=== PATIENT | female | born 1975 | race Caucasian/White ===

== ENCOUNTER → 2016-10-21 | Outpatient (CLI) | payer BC ==
[~2016-10-21] MED LIST: Gadobutrol 10 mMOL/10 ML SDV IVPUSH STA
--- NOTE | 2016-10-21 16:27 | CR ---
EXAMINATION: Lumbar spine HISTORY: Lytic uropathy COMPARISON: MRI dated 10/21/2016 TECHNIQUE: AP, lateral, flexion and extension images of the lumbar spine. FINDINGS: The lumbar spinal alignment is normal. The vertebral body heights are grossly maintained. There is no fracture or acute osseous abnormality. The SI joints are symmetric. Alignment appears no rmal flexion and extension. IMPRESSION: Unremarkable lumbar spine.
--- NOTE | 2016-10-22 12:46 | MR ---
EXAMINATION: MRI of the lumbar spine without contrast HISTORY: Radiculopathy COMPARISON: 07/05/2014 TECHNIQUE: Multiplanar and multisequence images obtained through the lumbar spine before and followi ng the administration of 7 mL of Gadavist. FINDINGS: The lumbar spinal alignment is normal. The vertebral body heights appear well maintained. Mild endplate edema is noted at L5. No suspicious bone marrow signal changes. No abnormal enhancemen t. The distal spinal cord appears normal and the conus terminates at L1-L2. The visualized retroperi toneal structures appear normal. T12-L1: Unremarkable. L1-L2: Unremarkable. L2-L3: Minimal facet hypertrophy, otherwise unremarkable. L3-L4: Tiny diffuse disc bulge without significant spinal canal or neural foraminal stenosis. L3-L4: Small diffuse disc bulge with mild facet and ligamentum flavum hypertrophy resulting in mild spinal canal stenosis. Mild bilateral neural foraminal stenosis. L5-S1: Moderate diffuse disc bulge with an annular tear without significant spinal canal stenosis. M ild to moderate foraminal stenosis. IMPRESSION: 1. Moderate diffuse disc bulge with an annular tear at L5-S1 otherwise mild multilevel degenerative disc disease with individual details above.
== END ==
LOC: MW.MRI 12:31
PROVIDERS: ATTEND Psychiatry & Neurology Neuromuscular Medicine
DX: M54.16 Radiculopathy, lumbar region (principal)
CPT/HCPCS: 72110; 72158; A9585

== ENCOUNTER → 2016-11-19 | Outpatient (CLI) | payer BC | LOC: MW.CHIM 11-15 12:00 | PROVIDERS: ATTEND Internal Medicine | DX: R00.2 Palpitations (principal) | CPT/HCPCS: 93005 ==

== ENCOUNTER → 2016-11-20 | Outpatient (CLI) | payer BC | END | disposition home or self-care (01) | LOC: MW.RT 14:45 | PROVIDERS: ATTEND Internal Medicine | DX: R00.2 Palpitations (principal) ==

== ENCOUNTER → 2016-11-26 | Outpatient (CLI) | payer BC | END | disposition home or self-care (01) | LOC: MW.DI 09:28 | PROVIDERS: ATTEND Physician Assistant | DX: R10.9 Unspecified abdominal pain (principal); R10.13 Epigastric pain; Z53.9 Procedure and treatment not carried out, unspecified reason ==

== ENCOUNTER → 2016-12-17 | Outpatient (CLI) | payer BC | END | disposition home or self-care (01) | LOC: MW.RT 13:54 | PROVIDERS: ATTEND Internal Medicine | DX: R10.13 Epigastric pain (principal); K42.9 Umbilical hernia without obstruction or gangrene; R00.2 Palpitations; N13.30 Unspecified hydronephrosis | CPT/HCPCS: 93270 ==

== ENCOUNTER → 2016-12-30 | Outpatient (CLI) | payer BC | END | disposition home or self-care (01) | LOC: MW.CHGS 13:42 | PROVIDERS: ATTEND Surgery | DX: R10.9 Unspecified abdominal pain (principal) | CPT/HCPCS: 36415; 81003; 85027 ==

== ENCOUNTER 2017-01-01 06:34 | Day surgery (SDC) | payer BC ==
[~2017-01-01 06:34] MED LIST changes: +Bupivacaine 0.5% 10 ML SDV ONE; -Gadobutrol 10 mMOL/10 ML SDV IVPUSH STA; +Lactated Ringers 1,000 ML IV SCH; +Sodium Chloride 0.9% 10 ML Syringe FLUSH PRN; +Sodium Chloride 0.9% 2.5 ML Syringe FLUSH PRN; +ceFAZolin 1 GM Vial ONE; +ceFAZolin 2 GM in Premix Bag 1 BAG IV ONE
[2017-01-01] MEDS ORDERED: Ondansetron 4 MG/2 ML SDV ONE (07:13)
[2017-01-01] MEDS ORDERED: Propofol 200 MG/20 ML SDV ONE (07:13)
[2017-01-01] MEDS ORDERED: Lidocaine 2% 5 ML SDV ONE (07:13)
[2017-01-01] MEDS ORDERED: Midazolam 1 MG/ML 2 ML SDV ONE (07:13)
[2017-01-01] MEDS ORDERED: fentaNYL 250 MCG/5 ML SDV ONE (07:14)
--- NOTE | 2017-01-01 07:15 | PCM.PREANE ---
Preanesthetic Assessment - Anesthesia/Transfusion/Family Hx Anesthesia History: Prior Anesthesia Without Reaction Family History of Anesthesia Reaction: No Transfusion History: No Prior Transfusion(s) Intubation History: Unknown - Review of Systems General: No Symptoms Pulmonary: No Symptoms Cardiovascular: No Symptoms Gastrointestinal: No symptoms Neurological: No Symptoms Other: Reports: None - Physical Assessment Height: 1.75 m Weight: 72.575 kg ASA Class: 2 Mental Status: Alert & Oriented x3 Airway Class: Mallampati = 2 Dentition: Reports: Normal Dentition Thyro-Mental Finger Breadths: 3 Mouth Opening Finger Breadths: 2 ROM/Head Extension: Full Lungs: Clear to auscultation, Normal respiratory effort Cardiovascular: Regular Rate, Regular Rhythm - Allergies Allergies/Adverse Reactions: Allergies Allergy/AdvReac Type Severity Reaction Status Date / Time No Known Allergies Allergy Verified 09/10/14 22:57 - Blood Blood Available: No - Anesthesia Plan Pre-Op Medication Ordered: None - Acknowledgements Anesthesia Type Planned: General Anesthesia Pt an Appropriate Candidate for the Planned Anesthesia: Yes Alternatives and Risks of Anesthesia Discussed w Pt/Guardian: Yes Pt/Guardian Understands and Agrees with Anesthesia Plan: Yes PreAnesthesia Questionnaire HEENT History: Reports: Other (see below) Other HEENT History: wears glasses/contacts Cardiovascular History: Reports: Other (see below) Other Cardiovascular History: palpatation, currently on holter monitor Respiratory History: Reports: None Gastrointestinal History: Reports: GERD Other Gastrointestinal History: "occasional reflux" Genitourinary History: Reports: None 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: Reports: Musculoskeletal History: Reports: Back pain, chronic, Other (see below) Other Musculoskeletal History: Herniated disc surgery Neurological History: Reports: Migraines Other Neuro History: Chiari malformation, myoclonus, muscle fasciculation, syrinx of spinal cord Psychiatric History: Reports: None Endocrine/Metabolic History: Reports: None Hematologic History: Reports: None Oncologic (Cancer) History: Reports: None Dermatologic History: Reports: None - Infectious Disease History Infectious Disease History: Reports: Chicken pox - Past Surgical History Head Surgeries/Procedures: Reports: None HEENT Surgical History: Reports: Tonsillectomy Cardiovascular Surgical History: Reports: None GI Surgical History: Reports: None Female Surgical History: Reports: Breast biopsy, section Endocrine Surgical History: Reports: None Neurological Surgical History: Reports: Lumbar spine Other Neurological Surgeries/Procedures: hx back surgery for herniated disc Musculoskeletal Surgical History: Reports: None Oncologic Surgical History: Reports: Biopsy of breast - SUBSTANCE USE Smoking Status *Q: Never Smoker Second Hand Smoke Exposure: No Days Per Week of Alcohol Use: 0 Recreational Drug Use History: No - HOME MEDS Home Medications: Home Meds ClonazePAM [KlonoPIN] 1 tab PO BEDTIME PRN 03/19/15 [History] Ca Carbonate/Vitamin D3/Vit K [Calcium + D Soft Chewable Tab] 1 tab.chew PO ASDIRECTED 12/30/16 [History] Evening [place] Oil [Evening [place]] 1 tab PO ASDIRECTED 12/30/16 [History] Ibuprofen 2 tab PO ASDIRECTED PRN 12/30/16 [History] Vitamin B Complex 1 tab PO DAILY 12/30/16 [History] - CURRENT (IN HOUSE) MEDS Current Meds: Current Medications Lactated Ringer's (Ringers, Lactated) 1,000 mls @ 125 mls/hr IV ASDIRECTED JL Last Admin: 01/01/17 07:01 Dose: 125 mls/hr Sodium Chloride (Saline Flush) 10 ml FLUSH ASDIRECTED PRN PRN Reason: Keep Vein Open Sodium Chloride (Saline Flush) 2.5 ml FLUSH ASDIRECTED PRN PRN Reason: Keep Vein Open Discontinued Medications Bupivacaine HCl (Sensorcaine-Mpf 0.5%) Confirm Administered Dose 30 ml .ROUTE .STK-MED ONE Stop: 12/31/16 15:03 Cefazolin Sodium (Ancef) Confirm Administered Dose 1 gm .ROUTE .STK-MED ONE Stop: 12/31/16 15:03 Cefazolin Sodium/Dextrose 2 gm (/ Premix) 50 mls @ 100 mls/hr IV ONETIME ONE Stop: 12/30/16 09:31
[2017-01-01] MEDS ORDERED: Rocuronium 10 MG/ML 10 ML Syringe ONE (07:55)
[2017-01-01] MEDS ORDERED: ceFAZolin 1 GM Vial ONE (08:00)
[2017-01-01] MEDS ORDERED: Sodium Chloride 0.9% 20 ML ONE (08:00)
[2017-01-01] MEDS ORDERED: ePHEDrine 50 MG/ML SDV ONE (08:01)
[2017-01-01] MEDS ORDERED: Neostigmine Methylsulfate 1 MG/ML 5 ML Syringe ONE (08:30)
--- NOTE | 2017-01-01 08:41 | PCM.OPNOTE ---
- General Post-Op/Procedure Note Date of Surgery/Procedure: 01/01/17 Operative Procedure(s): Umbilical hernia repair Findings: Incarcerated omental fat in small 1cm lina-umbilical hernia Pre Op Diagnosis: Umbilical hernia+ Post-Op Diagnosis: Same Anesthesia Technique: General ET tube Condition: Good
--- NOTE | 2017-01-01 09:21 | PCM.POSTAN ---
POST ANESTHESIA ASSESSMENT - MENTAL STATUS Mental Status: alert, oriented - RESPIRATORY Respiratory Status: respiratory rate WNL, airway patent, O2 saturation stable - CARDIOVASCULAR CV Status: pulse rate WNL, blood pressure stable - GASTROINTESTINAL GI Status: no symptoms - PAIN Pain Score: 2 - POST OP HYDRATION Hydration Status: adequate & stable - OBSERVATIONS Free Text/Narrative:: no anesthesia problems
[2017-01-01] MEDS ORDERED: Acetaminophen/oxyCODONE 325-5 MG Tab PO PRN (09:46)
[2017-01-01 12:08] VITALS: BP 123/71
--- NOTE | 2017-01-01 13:50 | OR ---
SURGEON: AMPARO VINCENT MD DATE OF PROCEDURE: 01/01/2017 PREOPERATIVE DIAGNOSIS: Umbilical hernia. POSTOPERATIVE DIAGNOSIS: Umbilical hernia. PROCEDURE PERFORMED: Umbilical hernia repair. ANESTHESIA: General endotracheal anesthetic. ESTIMATED BLOOD LOSS: 3 mL. FINDINGS: Incarcerated preperitoneal fat in a 1 cm umbilical hernia. COMPLICATIONS: None. INDICATIONS: The patient is a 41-year-old female, who presented with intermittent abdominal pain and discomfort along her umbilicus. A CT of the abdomen was performed that showed a small umbilical hernia with incarcerated fat. On exam, the patient was mildly tender around this hernia. The decision was made to repair it. We discussed the procedure as well as expected perioperative course. We discussed the risks, including bleeding, infection, or damage to surrounding structures. The patient verbalized understanding and wishes to proceed. PROCEDURE IN DETAIL: The patient was brought into the operating room and placed on the operating room table in supine position. A time-out was completed verifying the patient's name, age, date of , allergies, and procedure to be performed. General endotracheal anesthesia was induced. The abdomen was prepped and draped in the usual sterile fashion. The umbilical hernia was located superiorly above the umbilical stalk. The supraumbilical fold was anesthetized with 0.5% Marcaine plain. A curvilinear incision was made along the supraumbilical fold. Cautery was used to dissect down to the subcutaneous tissues. Once in the subcutaneous fat, I then used Metzenbaum scissors to dissect around the hernia sac. The hernia sac was thin and tore during my dissection. This exposed an incarcerated piece of preperitoneal fat. I dissected out the remainder of the hernia sac and contents. A 1 cm defect was noted within the fascia. I attempted to reduce the hernia sac contents back into the abdomen with no success. The fat was then dissected off its attachments using electrocautery and passed off the field as hernia sac contents. This was sent to pathology. I then cleared off the fascia underneath the umbilical fascial defect with blunt dissection. The intra- abdominal content were inspected and no injury to surrounding structures were noted. After this was cleared away, 0 Ethibond sutures were used to close the defect primarily in a horizontal fashion. The stitches were placed intermittently approximately 1/2 cm apart. A Valsalva maneuver was performed once these were secured in place and no protrusion of intraabdominal contents was noted. The fascia around the area of repair was anesthetized with 0.5% Marcaine. I then closed the overlying tissues with interrupted 3-0 Vicryl in the subcutaneous fat and a running 4-0 Monocryl suture within the skin. Steri-Strips and sterile dressings were applied. All counts were complete and correct at the end of the case. The patient tolerated the procedure well and was taken to PACU in stable condition. LENI MCKEON /[id number] MTDD
== END 2017-01-01 10:38 | disposition home or self-care (01) ==
LOC: MW.SDS 06:34
PROVIDERS: ATTEND Surgery
DX: K42.0 Umbilical hernia with obstruction, without gangrene (principal); G93.5 Compression of brain; Z98.890 Other specified postprocedural states
CPT/HCPCS: 49587; 81025; A9270; J0690; J2250; J2405; J3010; J7120; 00750; 88302; J2704

== ENCOUNTER 2018-05-16 19:28 | Emergency (ER) | payer BC ==
--- NOTE | 2018-05-16 19:56 | EDM.PDOC ---
ED HPI GENERAL MEDICAL PROBLEM - General Chief Complaint: ENT Problem Stated Complaint: PT HAS SORE THROAT Time Seen by Provider: 05/16/18 19:32 Source of Information: Reports: Patient History Limitations: Reports: No Limitations - History of Present Illness INITIAL COMMENTS - FREE TEXT/NARRATIVE: HISTORY AND PHYSICAL: History of present illness: She denies a 42-year-old female who presents to the emergency room today with complaints of sore throat 2 days. She states that her daughter started having symptoms yesterday, more severe and worse. She came to have her daughter evaluated through the emergency room dizziness decided she would like to be seen as well. She denies any fever, chills, chest pain or shortness of breath. Denies any abdominal pain, nausea, vomiting, diarrhea or constipation. She has been using Tylenol and ibuprofen for discomfort. She has been eating and drinking appropriately. Review of systems: As per history of present illness and below otherwise all systems reviewed and negative. Past medical history: As per history of present illness and as reviewed below otherwise noncontributory. Surgical history: As per history of present illness and as reviewed below otherwise noncontributory. Social history: No reported history of drug or alcohol abuse. Family history: As per history of present illness and as reviewed below otherwise noncontributory. Physical exam: General: Well-developed and well-nourished 42-year-old female. Alert and oriented. Nontoxic appearing and in no acute distress. HEENT: Atraumatic, normocephalic, pupils equal and reactive bilaterally, negative for conjunctival pallor or scleral icterus, mucous membranes moist, mild erythema to the posterior oropharynx without exudate, mild lymph node enlargement laterally submandibular, neck supple, nontender, trachea midline. No drooling or trismus noted. No meningeal signs Lungs: Clear to auscultation, breath sounds equal bilaterally, chest nontender. Heart: S1S2, regular rate and rhythm without overt murmur Abdomen: Soft, nondistended, nontender. Negative for masses or hepatosplenomegaly. Negative for costovertebral tenderness. Pelvis: Stable nontender. Genitourinary: Deferred. Rectal: Deferred. Skin: Intact, warm, dry. No lesions or rashes noted. Extremities: Atraumatic, negative for cords or calf pain. Neurovascular unremarkable. Neuro: Awake, alert, oriented. Cranial nerves II through XII unremarkable. Cerebellum unremarkable. Motor and sensory unremarkable throughout. Exam nonfocal. Notes: Patient's daughter tested positive for strep while here in the emergency room. Patient does have similar symptoms and erythema to the posterior oropharynx. We' ll treat with amoxicillin twice a day 10 days. Diagnostics: None Therapeutics: None Prescription: Amoxicillin Impression: Pharyngitis Plan: 1. Take the medication as directed. 2. Warm salt water gargles, swish and spit. Get a new tooth brush in the next 3- 4 days. 3. Tylenol and/or Ibuprofen as needed for pain and fever management. 4. Follow up with your merry go round attendant on Friday. Return to the ED as needed as discussed Definitive disposition and diagnosis as appropriate pending reevaluation and review of above. Duration: Day(s): Location: Reports: Neck Throat Pain Score (Numeric/FACES): 5 - Related Data Allergies Allergy/AdvReac Type Severity Reaction Status Date / Time No Known Allergies Allergy Verified 05/16/18 19:46 Home Meds: Home Meds Amoxicillin 500 mg PO BID 10 Days #20 capsule 05/16/18 [Rx] Past Medical History HEENT History: Reports: Other (See Below) Other HEENT History: wears glasses/contacts Cardiovascular History: Reports: Other (See Below) Other Cardiovascular History: palpatation, currently on holter monitor Respiratory History: Reports: None Gastrointestinal History: Reports: GERD Other Gastrointestinal History: "occasional reflux" Genitourinary History: Reports: None 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: Musculoskeletal History: Reports: Back Pain, Chronic, Other (See Below) Other Musculoskeletal History: Herniated disc surgery Neurological History: Reports: Migraines Other Neuro History: Chiari malformation, myoclonus, muscle fasciculation, syrinx of spinal cord Psychiatric History: Reports: None Endocrine/Metabolic History: Reports: None Hematologic History: Reports: None Oncologic (Cancer) History: Reports: None Dermatologic History: Reports: None - Infectious Disease History Infectious Disease History: Reports: Chicken Pox - Past Surgical History Female Surgical History: Reports: Breast Biopsy, Section Neurological Surgical History: Reports: Lumbar Spine Oncologic Surgical History: Reports: Biopsy of Breast Social & Family History - Family History Cardiac: Reports: Hypertension Endocrine/Metabolic: Reports: Diabetes, type II Oncologic: Reports: Skin - Caffeine Use Caffeine Use: Reports: Coffee, Tea ED ROS ENT - Review of Systems Review Of Systems: ROS reveals no pertinent complaints other than HPI. ED EXAM, ENT - Physical Exam Exam: See Below (See dictation) Course - Vital Signs Last Recorded V/S: Last Vital Signs Temp 98.3 F 05/16/18 19:43 Pulse 82 05/16/18 19:43 Resp 12 05/16/18 19:43 BP 120/71 05/16/18 19:43 Pulse Ox 97 05/16/18 19:43 Departure - Departure Time of Disposition: 20:12 Disposition: Home, Self-Care 01 Clinical Impression: Pharyngitis Qualifiers: Pharyngitis/tonsillitis etiology: unspecified etiology Qualified Code(s): J02.9 - Acute pharyngitis, unspecified - Discharge Information Prescriptions: Amoxicillin 500 mg PO BID 10 Days #20 capsule Instructions: Strep Throat, [id number] Forms: ED Department Discharge Additional Instructions: The following information is given to patients seen in the emergency department who are being discharged to home. This information is to outline your options for follow-up care. We provide all patients seen in our emergency department with a follow-up referral. The need for follow-up, as well as the timing and circumstances, are variable depending upon the specifics of your emergency department visit. If you don't have a primary care physician on staff, we will provide you with a referral. We always advise you to contact your personal physician following an emergency department visit to inform them of the circumstance of the visit and for follow-up with them and/or the need for any referrals to a consulting specialist. The emergency department will also refer you to a specialist when appropriate. This referral assures that you have the opportunity for follow-up care with a specialist. All of these measure are taken in an effort to provide you with optimal care, which includes your follow-up. Under all circumstances we always encourage you to contact your private physician who remains a resource for coordinating your care. When calling for follow-up care, please make the office aware that this follow-up is from your recent emergency room visit. If for any reason you are refused follow-up, please contact the [facility] at and asked to speak to the emergency department charge nurse. [facility] [address] [place] [id number] 1. Take the medication as directed. 2. Warm salt water gargles, swish and spit. Get a new tooth brush in the next 3- 4 days. 3. Tylenol and/or Ibuprofen as needed for pain and fever management. 4. Follow up with your merry go round attendant on Friday. Return to the ED as needed as discussed
[2018-05-16 20:45] VITALS: BP 100/63
== END 2018-05-16 20:24 | disposition home or self-care (01) ==
LOC: MW.ED 19:28
DX: J02.9 Acute pharyngitis, unspecified (principal)
CPT/HCPCS: 99282

== ENCOUNTER 2020-06-15 19:25 | Emergency (ER) | payer BC, OTHER ==
--- NOTE | 2020-06-15 20:54 | PCM.SN.2 ---
- Free Text/Narrative Note: Heart rate = 79 bpm, normal sinus rhythm, normal QRS interval, no STEMI. EKG and rhythm strip interpreted by me at 2042
[2020-06-15 21:48] LABS: BLOOD UREA NITROGEN,BUN 11 mg/dL (7.0-18.0); CARBON DIOXIDE,CO2 27.6 mmol/L (21.0-32.0); CHLORIDE,CL 104 mmol/L (98-107); GLUCOSE RANDOM 109 mg/dL (74-106); POTASSIUM,K 3.7 mmol/L (3.5-5.1); SODIUM,NA 138 mmol/L (136-145)
--- NOTE | 2020-06-15 22:11 | CR ---
INDICATION: Shortness of breath TECHNIQUE: Chest radiograph 1 view COMPARISON: None FINDINGS: Mediastinum: The mediastinum is normal in appearance. The heart silhouette is normal in size and morphology. Lung: Both lungs are unremarkable in appearance. No sign of pleural effusion seen. No pneumothorax is identified. Bone and Soft tissue: Unremarkable for age. IMPRESSION: 1. No acute cardiopulmonary disease is seen. Dictated by: Gabriel Nam MD @ 06/15/2020 22:09:00 (Electronically Signed)
--- NOTE | 2020-06-15 22:14 | EDM.PDOC ---
ED HPI GENERAL MEDICAL PROBLEM - General Chief Complaint: Respiratory Problem Stated Complaint: NECK PAIN, CHEST AND BREATHING ISSUES Time Seen by Provider: 06/15/20 20:12 Source of Information: Reports: Patient History Limitations: Reports: No Limitations - History of Present Illness INITIAL COMMENTS - FREE TEXT/NARRATIVE: HISTORY AND PHYSICAL: History of present illness: Patient is a 44-year-old female who presents to the ED today with concern of a discomfort at the base of her neck/into her lungs that has been ongoing for the last 5 days dating she feels like she needs to "clear her throat a lot". Patient states not necessarily a sore throat and feels a little bit lower than a typical strep throat like she has had in the past. Patient states that her son was diagnosed with Covid 2 weeks ago and patient states that she had quarantine with him and had some vague nausea symptoms last week. She already had Covid. Patient states that she herself has not been tested for Covid. Patient states that she was concerned about the sensation so came to the emergency room to be evaluated. Patient denies any health history and states that she is currently on her menstrual cycle so does not believe to be . Patient denies fever, chills, chest pain, shortness of breath, or cough. Denies headache, neck stiff ness, change in vision, syncope, or near syncope. Denies nausea, vomiting, abdominal pain, diarrhea, constipation, or dysuria. Has not noted any blood in urine or stool. Patient has been eating and drinking appropriately. Review of systems: As per history of present illness and below otherwise all systems reviewed and negative. Past medical history: As per history of present illness and as reviewed below otherwise noncontributory. Surgical history: As per history of present illness and as reviewed below otherwise noncontributory. Social history: See social history for further information Family history: As per history of present illness and as reviewed below otherwise noncontributory. Physical exam: General: Patient is alert, oriented, and in no acute distress. Patient sitting comfortably on exam table. HEENT: Atraumatic, normocephalic, pupils equal and reactive bilaterally, negative for conjunctival pallor or scleral icterus, mucous membranes moist, TMs normal bilaterally, throat clear, neck supple, nontender, trachea midline. No drooling or trismus noted. No meningeal signs. No hot potato voice noted. Lungs: Patient speaking clearly without breathlessness, no wheezing or stridor, no accessory muscle use or respiratory distress. Auscultation deferred due to current COV-ID 19 outbreak. Heart: Auscultation deferred due to current COV-ID 19 outbreak. Abdomen: Soft, nondistended, nontender. Negative for masses or hepato splenomegaly. Negative for costovertebral tenderness. Pelvis: Stable nontender. Genitourinary: Deferred. Rectal: Deferred. Skin: Intact, warm, dry. No lesions or rashes noted. Extremities: Atraumatic, negative for cords or calf pain. Neurovascular unremarkable. Neuro: Awake, alert, oriented. Cranial nerves II through XII unremarkable. Cerebellum unremarkable. Motor and sensory unremarkable throughout. Exam nonfocal. Notes: See EKG interpretation dictation done by Dr. Love. Signs and symptoms that would prompt return to the ED thoroughly discussed with patient. Discussed importance for follow-up with a primary care provider. Voices understanding and is agreeable to plan of care. Denies any further questions or concerns at this time. Diagnostics: EKG, CBC, CMP, UA, CXR, Trop, Ddimer, COVID, Strep Therapeutics: None Prescription: None Impression: Pharyngitis, unspecified Plan: 1. Use cough drops and/or other over the counter medications as needed for throat discomfort as discussed. Drink small but frequent sips of fluid to prevent dehydration. 2. Alternate Ibuprofen and Tylenol as directed for pain and discomfort. 3. Follow up with your primary care provider as discussed. 4. Return to the ED as needed and as discussed. Definitive disposition and diagnosis as appropriate pending reevaluation and review of above. neck Pain Score (Numeric/FACES): 4 - Related Data Allergies Allergy/AdvReac Type Severity Reaction Status Date / Time clindamycin Allergy Itching Verified 06/15/20 19:54 Home Meds: Home Meds Cholecalciferol (Vitamin D3) [Vitamin D3] 2,000 unit PO DAILY 06/15/20 [History] Past Medical History HEENT History: Reports: Other (See Below) Other HEENT History: wears glasses/contacts Cardiovascular History: Reports: Other (See Below) Other Cardiovascular History: palpatation, currently on holter monitor Respiratory History: Reports: None Gastrointestinal History: Reports: GERD Other Gastrointestinal History: "occasional reflux" Genitourinary History: Reports: None 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: Musculoskeletal History: Reports: Back Pain, Chronic, Other (See Below) Other Musculoskeletal History: Herniated disc surgery Neurological History: Reports: Migraines Other Neuro History: Chiari malformation, myoclonus, muscle fasciculation,syrinx of spinal cord Psychiatric History: Reports: None Endocrine/Metabolic History: Reports: None Hematologic History: Reports: None Oncologic (Cancer) History: Reports: None Dermatologic History: Reports: None - Infectious Disease History Infectious Disease History: Reports: Chicken Pox - Past Surgical History Head Surgeries/Procedures: Reports: None GI Surgical History: Reports: Hernia Repair/Other Female Surgical History: Reports: Breast Biopsy, Section Neurological Surgical History: Reports: Lumbar Spine Oncologic Surgical History: Reports: Biopsy of Breast Social & Family History - Family History Cardiac: Reports: Hypertension Endocrine/Metabolic: Reports: Diabetes, type II Oncologic: Reports: Skin - Tobacco Use Tobacco Use Status *Q: Never Tobacco User - Caffeine Use Caffeine Use: Reports: Coffee - Recreational Drug Use Recreational Drug Use: No ED ROS GENERAL - Review of Systems Review Of Systems: Comprehensive ROS is negative, except as noted in HPI. ED EXAM, GENERAL - Physical Exam Exam: See Below (see dictation) Course - Vital Signs Last Recorded V/S: Last Vital Signs Temp 96.4 F L 06/15/20 19:55 Pulse 92 06/15/20 19:55 Resp 20 06/15/20 19:55 BP 121/63 06/15/20 19:55 Pulse Ox 100 06/15/20 19:55 - Orders/Labs/Meds Orders: Active Orders 24 hr Category Date Time Status Cardiac Monitoring [RC] . DIRECTED Care 06/15/20 21:02 Active EKG Documentation Completion [RC] STAT Care 06/15/20 21:02 Active CORONAVIRUS COVID-19 PCR PHL Stat Lab 06/15/20 22:04 Received CULTURE STREP A CONFIRMATION [RM] Stat Lab 06/15/20 21:00 Results STREP SCRN A RAPID W CULT CONF [RM] Stat Lab 06/15/20 21:00 Results Labs: Laboratory Tests 06/15/20 06/15/20 06/15/20 Range/Units 21:05 21:05 21:05 WBC 5.65 (4.0-11.0) K/uL RBC 4.79 (4.30-5.90) M/uL Hgb 14.3 (12.0-16.0) g/dL Hct 42.9 (36.0-46.0) % MCV 89.6 (80.0-98.0) fL MCH 29.9 (27.0-32.0) pg MCHC 33.3 (31.0-37.0) g/dL RDW Std Deviation 42.1 (28.0-62.0) fl RDW Coeff of Aiden 13 (11.0-15.0) % Plt Count 228 (150-400) K/uL MPV 10.00 (7.40-12.00) fL Neut % (Auto) 64.6 (48.0-80.0) % Lymph % (Auto) 27.4 (16.0-40.0) % Morris % (Auto) 5.8 (0.0-15.0) % Eos % (Auto) 1.8 (0.0-7.0) % Baso % (Auto) 0.4 (0.0-1.5) % Neut # (Auto) 3.7 (1.4-5.7) K/uL Lymph # (Auto) 1.6 (0.6-2.4) K/uL Morris # (Auto) 0.3 (0.0-0.8) K/uL Eos # (Auto) 0.1 (0.0-0.7) K/uL Baso # (Auto) 0.0 (0.0-0.1) K/uL Nucleated RBC % 0.0 /100WBC Nucleated RBCs # 0 K/uL D-Dimer, Quantitative 0.20 (0.0-0.50) mg/L FEU Sodium 138 (136-145) mmol/L Potassium 3.7 (3.5-5.1) mmol/L Chloride 104 (98-107) mmol/L Carbon Dioxide 27.6 (21.0-32.0) mmol/L BUN 11 (7.0-18.0) mg/dL Creatinine 0.9 (0.6-1.0) mg/dL Est Cr Clr Drug Dosing 85.10 mL/min Estimated GFR (MDRD) > 60.0 ml/min Glucose 109 H (74-106) mg/dL Calcium 9.1 (8.5-10.1) mg/dL Total Bilirubin 0.4 (0.2-1.0) mg/dL AST 24 (15-37) IU/L ALT 25 (14-63) IU/L Alkaline Phosphatase 64 (46-116) U/L Troponin I < 0.050 (0.000-0.056) ng/mL Total Protein 8.0 (6.4-8.2) g/dL Albumin 4.4 (3.4-5.0) g/dL Globulin 3.6 (2.6-4.0) g/dL Albumin/Globulin Ratio 1.2 (0.9-1.6) HCG, Qual (NEG) Urine Color Urine Appearance Urine pH (5.0-8.0) Ur Specific [place] (1.001-1.035) Urine Protein (NEGATIVE) mg/dL Urine Glucose (UA) (NEGATIVE) mg/dL Urine Ketones (NEGATIVE) mg/dL Urine Occult Blood (NEGATIVE) Urine Nitrite (NEGATIVE) Urine Bilirubin (NEGATIVE) Urine Urobilinogen (<2.0) EU/dL Ur Leukocyte Esterase (NEGATIVE) Urine RBC (0-2/HPF) Urine WBC (0-5/HPF) Ur Epithelial Cells (NONE-FEW) Urine Bacteria (NEGATIVE) SARS CoV-2 RNA Rapid SAMRA (NEGATIVE) 06/15/20 06/15/20 06/15/20 Range/Units 21:05 21:14 21:53 WBC (4.0-11.0) K/uL RBC (4.30-5.90) M/uL Hgb (12.0-16.0) g/dL Hct (36.0-46.0) % MCV (80.0-98.0) fL MCH (27.0-32.0) pg MCHC (31.0-37.0) g/dL RDW Std Deviation (28.0-62.0) fl RDW Coeff of Aiden (11.0-15.0) % Plt Count (150-400) K/uL MPV (7.40-12.00) fL Neut % (Auto) (48.0-80.0) % Lymph % (Auto) (16.0-40.0) % Morris % (Auto) (0.0-15.0) % Eos % (Auto) (0.0-7.0) % Baso % (Auto) (0.0-1.5) % Neut # (Auto) (1.4-5.7) K/uL Lymph # (Auto) (0.6-2.4) K/uL Morris # (Auto) (0.0-0.8) K/uL Eos # (Auto) (0.0-0.7) K/uL Baso # (Auto) (0.0-0.1) K/uL Nucleated RBC % /100WBC Nucleated RBCs # K/uL D-Dimer, Quantitative (0.0-0.50) mg/L FEU Sodium (136-145) mmol/L Potassium (3.5-5.1) mmol/L Chloride (98-107) mmol/L Carbon Dioxide (21.0-32.0) mmol/L BUN (7.0-18.0) mg/dL Creatinine (0.6-1.0) mg/dL Est Cr Clr Drug Dosing mL/min Estimated GFR (MDRD) ml/min Glucose (74-106) mg/dL Calcium (8.5-10.1) mg/dL Total Bilirubin (0.2-1.0) mg/dL AST (15-37) IU/L ALT (14-63) IU/L Alkaline Phosphatase (46-116) U/L Troponin I (0.000-0.056) ng/mL Total Protein (6.4-8.2) g/dL Albumin (3.4-5.0) g/dL Globulin (2.6-4.0) g/dL Albumin/Globulin Ratio (0.9-1.6) HCG, Qual NEGATIVE (NEG) Urine Color YELLOW Urine Appearance SLT CLOUDY Urine pH 6.0 (5.0-8.0) Ur Specific [place] 1.015 (1.001-1.035) Urine Protein NEGATIVE (NEGATIVE) mg/dL Urine Glucose (UA) NEGATIVE (NEGATIVE) mg/dL Urine Ketones NEGATIVE (NEGATIVE) mg/dL Urine Occult Blood LARGE H (NEGATIVE) Urine Nitrite NEGATIVE (NEGATIVE) Urine Bilirubin NEGATIVE (NEGATIVE) Urine Urobilinogen 0.2 (<2.0) EU/dL Ur Leukocyte Esterase NEGATIVE (NEGATIVE) Urine RBC 7-14 (0-2/HPF) Urine WBC 0-1 (0-5/HPF) Ur Epithelial Cells RARE (NONE-FEW) Urine Bacteria FEW (NEGATIVE) SARS CoV-2 RNA Rapid SAMRA NEGATIVE (NEGATIVE) Departure - Departure Time of Disposition: 22:47 Disposition: Home, Self-Care 01 Clinical Impression: Pharyngitis Qualifiers: Pharyngitis/tonsillitis etiology: unspecified etiology Qualified Code(s): J02.9 - Acute pharyngitis, unspecified - Discharge Information Referrals: PCP,None [Primary Care Provider] - Forms: ED Department Discharge Additional Instructions: The following information is given to patients seen in the emergency department who are being discharged to home. This information is to outline your options for follow-up care. We provide all patients seen in our emergency department with a follow-up referral. The need for follow-up, as well as the timing and circumstances, are variable depending upon the specifics of your emergency department visit. If you don't have a primary care physician on staff, we will provide you with a referral. We always advise you to contact your personal physician following an emergency department visit to inform them of the circumstance of the visit and for follow-up with them and/or the need for any referrals to a consulting specialist. The emergency department will also refer you to a specialist when appropriate. This referral assures that you have the opportunity for follow-up care with a specialist. All of these measure are taken in an effort to provide you with optimal care, which includes your follow-up. Under all circumstances we always encourage you to contact your private physician who remains a resource for coordinating your care. When calling for follow-up care, please make the office aware that this follow-up is from your recent emergency room visit. If for any reason you are refused follow-up, please contact the [facility] Emergency Department at and asked to speak to the emergency department charge nurse. [facility] [address] [place] [id number] [facility] [address] [place] [address] 1. Use cough drops and/or other over the counter medications as needed for throat discomfort as discussed. Drink small but frequent sips of fluid to prevent dehydration. 2. Alternate Ibuprofen and Tylenol as directed for pain and discomfort. 3. Follow up with your primary care provider as discussed. 4. Return to the ED as needed and as discussed. Sepsis Event Note (ED) - Evaluation Sepsis Screening Result: No Definite Risk - Focused Exam Vital Signs: Vital Signs Temp Pulse Resp BP Pulse Ox 06/15/20 19:55 96.4 F L 92 20 121/63 100 - My Orders Last 24 Hours: My Active Orders 06/15/20 21:00 CULTURE STREP A CONFIRMATION [RM] Stat STREP SCRN A RAPID W CULT CONF [RM] Stat 06/15/20 21:02 Cardiac Monitoring [RC] . DIRECTED EKG Documentation Completion [RC] STAT 06/15/20 22:04 CORONAVIRUS COVID-19 PCR PHL Stat - Assessment/Plan Last 24 Hours: My Active Orders 06/15/20 21:00 CULTURE STREP A CONFIRMATION [RM] Stat STREP SCRN A RAPID W CULT CONF [RM] Stat 06/15/20 21:02 Cardiac Monitoring [RC] . DIRECTED EKG Documentation Completion [RC] STAT 06/15/20 22:04 CORONAVIRUS COVID-19 PCR PHL Stat
[2020-06-15 22:59] VITALS: BP 119/62; PULSE 79
== END 2020-06-15 23:00 | disposition home or self-care (01) ==
LOC: MW.ED 19:25
DX: J02.9 Acute pharyngitis, unspecified (principal); Z88.1 Allergy status to other antibiotic agents; Z20.828 Contact with and (suspected) exposure to other viral communicable diseases
CPT/HCPCS: 36415; 71045; 71045-26; 80053; 81001; 84484; 84703; 85025; 85379; 87081; 87880-QW; 93005; 93010; 99283; 99284-25; U0002